=== PATIENT | male | born 1985 | race Two or more races ===

== ENCOUNTER 2018-01-20 20:17 | Emergency (ER) | payer OTHER ==
--- NOTE | 2018-01-20 20:50 | EDPHY ---
H & P Time Seen by Provider: 01/20/18 20:38 HPI/ROS: CHIEF COMPLAINT: Right medial knee pain HISTORY OF PRESENT ILLNESS: 32-year-old male works at [employer] complaining of acute right medial knee pain after a few 2 x 4 boards fell onto his right medial knee. He is able to bear weight albeit with pain. No proximal distal pain or injury. No paresthesia. Sustained abrasion proximal to this. PRIMARY CARE PROVIDER: REVIEW OF SYSTEMS: A ten point review of systems was performed and is negative with the exception of the items mentioned in the HPI PHYSICAL EXAM (Prior to examination, patient consented to physical exam, hands were washed and my usual and customary physical exam procedures followed) 1) GENERAL: Well-developed, well-nourished, alert and oriented. Appears to be in no acute distress. 2) HEAD: Normocephalic 3) HEENT: Pupils equal, round, reactive to light bilaterally. 4) LUNGS: Breathing comfortably. 5) MUSCULOSKELETAL: Exam of the right knee shows abrasion to the right medial thigh with soft compartments and no underlying pain. Tender to palpation right medial knee with full pain-free range of motion. No gross instability. . Compartments are soft. 6) SKIN: Intact 7) VASCULAR: DP,PT pulses and cap refill present and brisk distally DIFFERENTIAL DIAGNOSIS: in no particular order including but not limited to fracture, sprain, compartment syndrome, septic arthritis, DVT Procedure: Crutches indications for crutch use discussed with patient. Patient fitted for crutches by ER staff. Observed ambulating with crutches. I think the patient has the capacity to safely use crutches. Usual and customary crutch walking precautions provided Procedure: Splint A knee immobilizer splint was applied by ER color laboratory technician. After application of the splint I returned and re-examined the patient. The splint was adequately immobilizing the joint and distal to the splint the patient's circulation and sensation were intact. Patient shows no signs of compartment syndrome. Was given orthopedic precautions. MEDICAL DECISION MAKING 10:10 p.m. Serial evaluations performed on patient. Remains neurovascularly intact. Soft compartments. I discussed the limitations of x-ray in diagnosis of knee pain and injury. At this time I do not think that emergent MRI is currently indicated. However, I have recommended follow-up with Orthopedic surgery and provided this referral information. Informed the patient that outpatient MRI may be indicated. Doubt septic arthritis. Doubt compartment syndrome. Doubt DVT. Smoking Status: Never smoked Constitutional: Initial Vital Signs Temperature (C) 37.4 C 01/20/18 20:20 Heart Rate 89 01/20/18 20:20 Respiratory Rate 18 01/20/18 20:20 Blood Pressure 157/83 H 01/20/18 20:20 O2 Sat (%) 98 01/20/18 20:20 O2 Delivery Mode Room Air Allergies/Adverse Reactions: No Known Allergies Allergy (Unverified 01/20/18 20:21) Home Medications: Medication Instructions Recorded Hydrocodone/APAP 5/325 [[place] 1 tab PO Q6 PRN #7 tab 01/20/18 5/325 (RX)] MDM/Departure - MDM Imaging Results: Imaging Impressions Knee X-Ray 01/20/18 20:46 Impression: [place] anterior soft tissue swelling. Images reviewed by myself Medications Given: Discontinued Medications Hydrocodone Bitart/Acetaminophen ([place] 5/325) 1 tab PO EDNOW ONE Stop: 01/20/18 21:24 Last Admin: 01/20/18 21:26 Dose: 1 tab Ibuprofen (Motrin) 600 mg PO EDNOW ONE Stop: 01/20/18 21:24 Last Admin: 01/20/18 21:27 Dose: 600 mg ED Course/Re-evaluation: I saw this patient independently based on established practice protocols. Care of patient under supervision of secondary supervising physician Dr Jordan . - Depart Disposition: Home, Routine, Self-Care Clinical Impression: Right knee pain Qualifiers: Chronicity: acute Qualified Code(s): M25.561 - Pain in right knee Condition: Good Instructions: Knee Pain (ED) Additional Instructions: Return to the ER immediately if you experience discoloration, have worsening pain, numbness, tingling, or any other symptoms that concern you. If you received x-rays in the emergency department today, be advised, that ligamentous , tendon, muscular, and other non-bony injury cannot be fully ruled out. Try to keep your affected extremity elevated above the level of your chest, and keep cold packs on the affected area, for the next 48 hours. Stand Alone Forms: Work Comp Follow Up, Work Excuse Prescriptions: Hydrocodone/APAP 5/325 [[place] 5/325 (RX)] 1 tab PO Q6 PRN #7 tab PRN Reason: Pain, Severe Referrals: Castillo Aldana MD [Medical Doctor] - 2-3 days, call for appt.
[2018-01-20] MEDS ORDERED: IBUPROFEN 600 MG TAB PO ONE (21:23)
[2018-01-20] MEDS ORDERED: HYDROCODONE/APAP 5/325 TAB PO ONE (21:23)
[2018-01-20 22:31] VITALS: BP 131/88
== END 2018-01-20 22:30 | disposition home or self-care (01) ==
DX: S89.91XA Unspecified injury of right lower leg, initial encounter (principal); W20.8XXA Other cause of strike by thrown, projected or falling object, initial encounter; Y92.89 Other specified places as the place of occurrence of the external cause; Y99.0 Civilian activity done for income or pay; Y93.89 Activity, other specified
CPT/HCPCS: L1830